=== PATIENT | female | born 2000 | race Caucasian/White ===

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

== ENCOUNTER → 2023-09-23 | Outpatient (CLI) | payer BC | END | disposition home or self-care (01) | LOC: LABPRL 10:30 | PROVIDERS: ATTEND Family Medicine | DX: Z00.00 Encounter for general adult medical examination without abnormal findings | CPT/HCPCS: 80053; 84443; 85025 ==